=== PATIENT | female | born 1965 | race Caucasian/White ===

== ENCOUNTER 2017-06-03 14:21 | Inpatient (IN) | payer MEDICAID ==
[~2017-06-03] VITALS: Ht 152.4 cm; Wt 65.5 kg
[~2017-06-03 14:21] MED LIST: ASCOCID-500500 MG PO; FERROUS SULFAT325 M2 PO; GLIPIZIDE2.5 M1 PO; KETOROLAC TROME10 MG PO; LAC PO; LEVAQUIN750 MG PO; METFORMIN HCL1000 MG PO; MUCINEX600 MG PO; NOR10T PO
[2017-06-03 15:21] LABS: BASOPHIL % 0.5 % (0-2); PLATELET COUNT 347 x10^3mcL (130-400)
[2017-06-03 15:22] LABS: CALCIUM 8.7 mg/dL (8.5-10.1); CARBON DIOXIDE 26.8 mmol/L (21-32); CHLORIDE SERUM 100 mmol/L (98-107); CREATININE SERUM 0.6 mg/dL (0.6-1.0); GFR1 > 60 mL/min; GLUCOSE SERUM 315 mg/dL (74-106); POTASSIUM SERUM 3.7 mmol/L (3.5-5.1); SODIUM SERUM 135 mmol/L (136-145)
[2017-06-03 15:25] LABS: RED CELL DISTRIBUTION WIDTH 17.4 % (11.5-14.5)
[2017-06-03 15:33] LABS: microscopic required? NO
[2017-06-03 15:38] LABS: urine erythrocyte NEGATIVE (NEGATIVE)
[2017-06-03] MEDS ORDERED: METFORMIN HYDR500 M1 PO (16:32)
[2017-06-03 17:38] VITALS: BP 146/91
[2017-06-03 18:24] LABS: AMPHETAMINE QUAL UR NONE DETECTED (NEG <=1000)
[2017-06-03 18:31] LABS: T3 TOTAL 0.89 ng/mL
[2017-06-03 18:46] LABS: CHOLESTEROL/HDL RATIO 4.1; MAGNESIUM 1.9 mg/dL (1.8-2.4); PHOSPHOROUS 3.3 mg/dL (2.5-4.9)
[2017-06-03 19:00] LABS: FREE T4 1.04 ng/dL (0.76-1.46); FREE THYROXINE INDEX 3.1 ug/dL (1.4-4.5); T4(THYROXINE) 8.7 ug/dL (4.7-13.3)
[2017-06-03 20:40] VITALS: BP 131/72
[2017-06-04 06:20] VITALS: BP 113/64
[2017-06-04 08:36] LABS: CALCIUM 7.9 mg/dL (8.5-10.1); CARBON DIOXIDE 27.4 mmol/L (21-32); CHLORIDE SERUM 108 mmol/L (98-107); CREATININE SERUM 0.5 mg/dL (0.6-1.0); GFR1 > 60 mL/min; GLUCOSE SERUM 120 mg/dL (74-106); POTASSIUM SERUM 3.4 mmol/L (3.5-5.1); SODIUM SERUM 140 mmol/L (136-145)
[2017-06-04 08:42] LABS: BASOPHIL % 0.4 % (0-2); PLATELET COUNT 321 x10^3mcL (130-400)
[2017-06-04 08:44] LABS: RED CELL DISTRIBUTION WIDTH 17.8 % (11.5-14.5)
[2017-06-04 09:00] VITALS: BP 112/69
[2017-06-04 13:25] VITALS: BP 111/67
[2017-06-04 17:00] VITALS: BP 116/71
[2017-06-04 20:52] VITALS: BP 121/70
[2017-06-05 05:49] VITALS: BP 107/64
[2017-06-05 07:20] LABS: BASOPHIL % 0.4 % (0-2); PLATELET COUNT 318 x10^3mcL (130-400)
[2017-06-05 07:46] LABS: RED CELL DISTRIBUTION WIDTH 16.9 % (11.5-14.5)
[2017-06-05 07:47] LABS: rbc morphology (normal/abnorm) ABNORMAL (NORMAL)
[2017-06-05 07:49] LABS: CALCIUM 8.2 mg/dL (8.5-10.1); CARBON DIOXIDE 27.7 mmol/L (21-32); CHLORIDE SERUM 106 mmol/L (98-107); CREATININE SERUM 0.5 mg/dL (0.6-1.0); GFR1 > 60 mL/min; GLUCOSE SERUM 152 mg/dL (74-106); POTASSIUM SERUM 3.8 mmol/L (3.5-5.1); SODIUM SERUM 137 mmol/L (136-145)
[2017-06-05 09:26] VITALS: BP 108/60
[2017-06-05] MEDS ORDERED: LIPI10 PO (11:15)
[2017-06-05] MEDS ORDERED: ECO81 PO (11:16)
[2017-06-05 12:15] VITALS: BP 108/60
== END 2017-06-05 13:20 | disposition home or self-care (01) | DRG 243 ==
LOC: ED 14:21 → DU 16:35
PROVIDERS: Emergency Medicine Emergency Medical Services; Family Medicine
DX: K21.9 Gastro-esophageal reflux disease without esophagitis (principal); N17.0 Acute kidney failure with tubular necrosis; E11.65 Type 2 diabetes mellitus with hyperglycemia; E83.51 Hypocalcemia; E11.51 Type 2 diabetes mellitus with diabetic peripheral angiopathy without gangrene; E86.0 Dehydration; I16.0 Hypertensive urgency; E87.1 Hypo-osmolality and hyponatremia; E87.6 Hypokalemia; K76.0 Fatty (change of) liver, not elsewhere classified; E78.5 Hyperlipidemia, unspecified; Z79.84 Long term (current) use of oral hypoglycemic drugs; Z68.28 Body mass index [BMI] 28.0-28.9, adult
CPT/HCPCS: 82962; 83880; 84439; 94150; J1815; J1885; J7030; Q0092

== ENCOUNTER 2018-11-17 22:14 | Emergency (ER) | payer MEDICAID ==
[~2018-11-17] VITALS: Ht 165.1 cm; Wt 68.0 kg
[~2018-11-17 22:14] MED LIST changes: +ECO81 PO; +LIPI10 PO; +METFORMIN HYDR500 M1 PO
[2018-11-17 22:24] VITALS: Ht 165.1 cm; Wt 68.0 kg
[2018-11-17 23:09] VITALS: BP 108/56
== END 2018-11-17 23:09 | disposition home or self-care (01) ==
LOC: ED 22:14
DX: S00.03XA Contusion of scalp, initial encounter (principal); F10.129 Alcohol abuse with intoxication, unspecified; I10 Essential (primary) hypertension; M54.2 Cervicalgia; E11.9 Type 2 diabetes mellitus without complications; W18.39XA Other fall on same level, initial encounter; Y93.89 Activity, other specified; Y92.89 Other specified places as the place of occurrence of the external cause; Y99.8 Other external cause status; Y90.9 Presence of alcohol in blood, level not specified